=== PATIENT | female | born 2000 | race Caucasian/White ===

== ENCOUNTER 2020-09-30 12:02 | Outpatient (REF) | payer OTHER, SELFPAY ==
[2020-09-30 14:00] LABS: MANUAL DIFF FLAG NO
[2020-09-30 14:18] LABS: Basophils Percent Auto 0.4 % (0-2); Eosinophils Absolute Auto 0.1 X10*3/uL (0.0-0.4); Eosinophils Percent Auto 1.5 % (0-4); Hematocrit 39.7 % (37-47); Hemoglobin 12.2 g/dl (12.0-16.0); Imm Gran Abs Auto 0.02 X10*3/uL (0.00-0.03); Imm Gran Pct Auto 0.3 % (0.0-0.4); Lymphocytes Absolute Auto 2.2 X10*3/uL (1.2-4.9); Lymphocytes Percent Auto 29.3 % (20-40); Mean Corpuscular HGB Conc 30.7 g/dl (31.0-35.0); Mean Corpuscular Hemoglobin 25.7 pg (27.0-33.0); Mean Corpuscular Volume 83.8 fL (80-98); Mean Platelet Volume 10.3 fL (9.4-12.3); Monocytes Absolute Auto 0.4 X10*3/uL (0.1-1.2); Monocytes Percent Auto 5.7 % (2-11); Neutrophils Absolute Auto 4.6 X10*3/uL (2.0-8.3); Neutrophils Percent Auto 62.8 % (45-73); Platelet Count 358 X10*3/uL (160-400); Red Blood Count 4.74 X10*6/uL (4.20-5.50); Red Cell Distribution Width 13.2 % (11.0-16.0); White Blood Count 7.3 X10*3/uL (4.8-10.8)
[2020-09-30 14:35] LABS: Anion Gap 15 (12-20); Blood Urea Nitrogen 14 mg/dL (9-16); Calcium 9.5 mg/dL (8.4-10.2); Carbon Dioxide 26 mmol/L (22-29); Chloride 105 mmol/L (96-108); Cholesterol 95 mg/dL; Estimated Glomerular Filt Rate > 60; Glucose Fasting 88 mg/dL (60-99); HDL Cholesterol 40 mg/dL; Iron 30 mcg/dL (30-160); LDL Cholesterol Calculated 49 mg/dl; Percent Iron Saturation 10 % (15-50); Potassium 4.5 mmol/L (3.3-5.1); Sodium 141 mmol/L (135-145); Total Iron Binding Capacity 294 mcg/dL (228-428); Triglycerides 33 mg/dL; Unsaturated Iron Binding 264 ug/dL
[2020-09-30 14:40] LABS: TSH reflex Free T4 0.97 uIU/mL (0.32-4.0); Vitamin D 25-OH Total 22.7 ng/mL (>30)
== END 2020-09-30 12:03 | disposition home or self-care (01) ==
LOC: HO.HMGCLDS 12:02
PROVIDERS: PCP Internal Medicine; Visit Provider Internal Medicine
DX: Z00.00 Encounter for general adult medical examination without abnormal findings (principal); E66.01 Morbid (severe) obesity due to excess calories; F32.5 Major depressive disorder, single episode, in full remission; M79.7 Fibromyalgia; I10 Essential (primary) hypertension
CPT/HCPCS: 36415; 80048; 80061; 82306; 83540; 84443; 85025

== ENCOUNTER 2021-08-27 13:55 | Outpatient (REF) | payer OTHER, SELFPAY ==
--- NOTE | 2021-08-27 15:03 | PFT_ITS ---
Forced vital capacity 112%, FEV1 113%, FEV1/FVC ratio 87. [id number] 116% and MVV 102%. Post bronchodilator therapy, there is no significant change. Total lung capacity 95% and residual volume is 53%. Diffusion capacity is 95% CONCLUSION: Normal pulmonary function tests. No evidence of obstructive or restrictive pulmonary disorder. Reduced residual volume is probably related to obesity. MD KAYLAH Oneill/MODL / [id number]
== END 2021-08-27 13:56 | disposition home or self-care (01) ==
LOC: HO.RESP 13:55
PROVIDERS: PCP Internal Medicine; Visit Provider Internal Medicine
DX: J45.909 Unspecified asthma, uncomplicated (principal)
CPT/HCPCS: 94060; 94727; 94729

== ENCOUNTER 2021-12-07 10:14 | Outpatient (REF) | payer OTHER, SELFPAY ==
[2021-12-07 14:39] LABS: CT PCR NOT DETECTED (Not Detect.); NG PCR NOT DETECTED (Not Detect.)
[2021-12-08 13:17] LABS: BV Int Neg Control Negative (Negative); BV Int Pos Control Positive (Positive)
== END 2021-12-07 10:15 | disposition home or self-care (01) ==
LOC: HO.LAB 10:14
PROVIDERS: Visit Provider Advanced Practice Midwife
DX: Z11.3 Encounter for screening for infections with a predominantly sexual mode of transmission (principal)
CPT/HCPCS: 87480; 87491; 87510; 87591; 87660

== ENCOUNTER 2021-12-07 16:11 | Outpatient (REF) | payer OTHER, SELFPAY | END 2021-12-07 16:12 | disposition home or self-care (01) | LOC: HO.LNP 16:11 | PROVIDERS: Visit Provider Advanced Practice Midwife | DX: Z01.419 Encounter for gynecological examination (general) (routine) without abnormal findings (principal) | CPT/HCPCS: 88142 ==

== ENCOUNTER 2022-05-11 13:12 | Outpatient (AMB) | payer OTHER, SELFPAY ==
[2022-05-11 13:14] VITALS: BP 136/78; PULSE 71; O2SAT 100; BMI 42.3
--- NOTE | 2022-05-11 13:14 | MHC.PC.OV ---
Vital Signs 05/11/22 13:14 Height 5 ft 7 in Weight 270 lb 4 oz BMI 42.3 BP 136/78 Blood Pressure Location Rt brachial Position Sitting Pulse 71 Pulse Source Pulse Oximeter Pulse Oximetry (%) 100 Oxygen Delivery Method Room Air Intake Visit Reasons: Return to work paper Intake Note: pt is here to have return to work papers filled out Allergies iodine [IODINE] Allergy (Unknown, Verified 10/25/23 13:09) HIVES, SWELLING latex [LATEX] Allergy (Unknown, Verified 10/25/23 13:09) HIVES, SWELLING peanut Allergy (Unknown, Verified 10/25/23 13:09) rash tree and shrub pollen Allergy (Unknown, Verified 10/25/23 13:09) rash medical tape Allergy (Unknown, Uncoded 10/25/23 13:09) rash pollen, trees Allergy (Unknown, Uncoded 10/25/23 13:09) rash Medication List - Last Reconciled 05/11/22 by Clara Pedraza MD albuterol sulfate 90 mcg/actuation 2 puffs inhalation Q6H PRN duloxetine 60 mg PO BID meloxicam 15 mg PO DAILY PRN norgestimate-ethinyl estradiol 0.18/0.215/0.25 mg-35 mcg (28) (Tri-Linyah) 1 tab PO DAILY Tobacco use date assessed: 05/11/22 [facility] Medical History Annual visit for general adult medical examination with abnormal findings History of low back pain Mixed anxiety and depressive disorder Back pain Large breasts Morbid obesity Depression, major, in remission Bilateral finger arthralgia Fibromyalgia Lumbar disc herniation Cholelithiasis Surgical History History of lumbar spinal fusion Hx of cholecystectomy History of lumbar laminectomy for spinal cord decompression History of lumbar spinal fusion Hx of cholecystectomy Family History Mother Anxiety Essential hypertension Asthma Father Medical history non-contributory Father Medical history non-contributory Mother HTN (hypertension) Anxiety Social History Housing: Apartment Alcohol intake: never Patient Tobacco Use Status: Never used Tobacco e-Cigarette/Vaping Use: Never Used service: No Current occupational status: unemployed Cognitive needs: No Hearing needs: No Vision needs: Yes Female Reproductive History Menstrual Age of Menarche: 11 Questionnaire Thrive Questionnaire Date Thrive assessed: 07/02/21 I am a: Patient What is your living situation today?: I have a place to live, but I am worried about losing it in the future Within the past 12 months, did the food you bought not last and you didn't have the money to get more?: Never true Within the past 12 months, did you worry whether your food would run out before you got money to buy more?: Never true Do you have trouble paying for medicines?: Yes Do you have trouble getting transportation to medical appointments?: No Do you have trouble paying your heating and electricity bill?: No Do you have trouble taking care of your child, family member or friend?: No Do you have trouble with day-to-day activities such as bathing, preparing meals, shopping, managing finances, etc.?: No Are you currently unemployed and looking for a job?: Yes Are you interested in more education?: No Please select the resources that you would like help with: Paying for medicine and Job search/training AUDIT C Alcohol Use Questionnaire (AUDIT-C) 1. How often do you have a drink containing alcohol?: Never 2. How many drinks containing alcohol do you have on a typical day when you are drinking?: 1 or 2 3. How often do you have six or more drinks on one occasion?: Never Total Score: 0 MAMI-7 AMB Questionnaire MAMI-7 Date MAMI - 7 assessed: 03/25/21 Feeling nervous, anxious, or on edge: 1 = Several days Not being able to stop or control worryin = Not at all Worrying too much about different things: 1 = Several days Trouble relaxin = Several days Being so restless that it is hard to sit still: 0 = Not at all Becoming easily annoyed or irritable: 1 = Several days Feeling afraid as if something awful might happen: 0 = Not at all Total MAMI-7 score (0-4 normal; 5-9 mild; 10-14 moderate; 15-21 severe): 4 Source: Developed by Drs. Bean Dumont, JuJeison Bahena and colleagues, with an educational carmella from [employer]. Physical exam (Primary Care) Vital Signs: Last Vital Signs Pulse 71 05/11/22 13:14 BP 136/78 05/11/22 13:14 Pulse Ox 100 05/11/22 13:14 Oxygen Delivery Method Room Air 05/11/22 13:14 BMI result Body Mass Index 42.3 Tobacco/Smoking Status: Tobacco use Status Tobacco use date assessed 05/11/22 05/11/22 13:19 Patient Tobacco Use Status Never used Tobacco 05/11/22 13:19 e-Cigarette/Vaping Use Never Used 05/11/22 13:19 Thrive Assessment: Date of Thrive Assessment Date Thrive assessed 07/02/21 05/11/22 13:19 Assessment and Plan Assessment & Plan (1) History of lumbar laminectomy for spinal cord decompression: Code(s): Z98.890 - Other specified postprocedural states (2) Lumbar disc herniation: Comment: Status post decompressive laminectomy and lumbar fusion February [address] Barboza Code(s): M51.26 - Other intervertebral disc displacement, lumbar region Coding Level of Care Code Est Pt Level 2 (91418) Diagnoses History of lumbar laminectomy for spinal cord decompression Z98.890 Lumbar disc herniation M51.26
== END 2022-05-11 14:01 | disposition home or self-care (01) ==
LOC: HO.HMGC 13:12
PROVIDERS: PCP Internal Medicine; Visit Provider Internal Medicine
DX: Z98.890 Other specified postprocedural states (principal); M51.26 Other intervertebral disc displacement, lumbar region
CPT/HCPCS: 99499

== ENCOUNTER 2022-10-13 14:33 | Outpatient (AMB) | payer OTHER, SELFPAY ==
--- NOTE | 2022-10-13 15:23 | MHC.OFFWIV ---
Intake Vital Signs 10/13/22 15:27 Height 5 ft 7 in BP 138/86 Blood Pressure Location Lt brachial Position Sitting Pulse 84 Pulse Source Pulse Oximeter Temp 98.0 F Temp Source Temporal Artery Scan Pulse Oximetry (%) 99 Oxygen Delivery Method Room Air Intake Visit Reasons: EP, Bilateral ear pain, sore throat([phone]) Intake Note: pt is here for ear pain in both ears for 3 days with a headache with a wheezing cough intermittent with a scratchy throat no fever Patient Tobacco Use Status: Never used Tobacco Allergies iodine [IODINE] Allergy (Unknown, Verified 10/13/22 16:02) HIVES, SWELLING latex [LATEX] Allergy (Unknown, Verified 10/13/22 16:02) HIVES, SWELLING peanut Allergy (Unknown, Verified 10/13/22 16:02) rash tree and shrub pollen Allergy (Unknown, Verified 10/13/22 16:02) rash medical tape Allergy (Unknown, Uncoded 10/13/22 16:02) rash pollen, trees Allergy (Unknown, Uncoded 10/13/22 16:02) rash Medication List - Last Reconciled 10/13/22 by Madi Andrew MD albuterol sulfate 90 mcg/actuation 2 puffs inhalation Q6H PRN duloxetine 60 mg PO BID meloxicam 15 mg PO DAILY PRN HPI EP, Bilateral ear pain, sore throat([phone]) HPI Details Patient presents for a sick visit. Reporting symptoms of sinus congestion, sore throat and difficulty swallowing. Low-grade fever. No family member is sick. No recent travel. Patient reports symptoms of malaise and fatigue. [facility] Medical History (Updated 10/13/22 @ 16:04 by Madi Andrew MD) Back pain Bilateral finger arthralgia Cholelithiasis Depression, major, in remission Fibromyalgia History of low back pain Large breasts Lumbar disc herniation Mixed anxiety and depressive disorder Morbid obesity Surgical History History of lumbar laminectomy for spinal cord decompression History of lumbar spinal fusion History of lumbar spinal fusion Hx of cholecystectomy Hx of cholecystectomy Family History Mother Anxiety Essential hypertension Asthma Father Medical history non-contributory Brother No problems noted. Brother No problems noted. Sister No problems noted. Father Medical history non-contributory Mother HTN (hypertension) Anxiety Brother No problems noted. Brother No problems noted. Sister No problems noted. Social History Housing: Apartment Alcohol intake: never Patient Tobacco Use Status: Never used Tobacco e-Cigarette/Vaping Use: Never Used service: No Current occupational status: unemployed Cognitive needs: No Hearing needs: No Vision needs: Yes Female Reproductive History Menstrual Age of Menarche: 11 Physical Exam Vital Signs: Last Vital Signs Temp 98.0 F 10/13/22 15:27 Pulse 84 10/13/22 15:27 BP 138/86 10/13/22 15:27 Pulse Ox 99 10/13/22 15:27 Oxygen Delivery Method Room Air 10/13/22 15:27 Const General: cooperative and healthy appearing Nutritional Appearance: well nourished Orientation/consciousness: patient oriented x3 Limitations: no limitations HEENT Head: Yes normal to inspection Eyes General: appearance normal, both eyes and all related structures Neck Neck: Yes normal visual inspection Chest Chest palpation & inspection: normal palpation of entire chest wall Resp Effort & Inspection: normal respiratory effort Neuro General: patient oriented x3 Assessment & Plan Assessment & Plan (1) Upper respiratory tract infection: Code(s): J06.9 - Acute upper respiratory infection, unspecified Plan: Antibiotics ordered. Increase fluid intake. Tylenol for aches and pains. If symptoms worsen, follow-up here for a recheck. Coding Level of Care Code Est Pt Level 3 (63729) Diagnoses Upper respiratory tract infection J06.9
[2022-10-13 15:27] VITALS: BP 138/86; PULSE 84; TEMP 36.7; O2SAT 99
== END 2022-10-13 16:14 | disposition home or self-care (01) ==
PROVIDERS: PCP Internal Medicine; Visit Provider Internal Medicine
DX: J06.9 Acute upper respiratory infection, unspecified (principal)
CPT/HCPCS: 99213

== ENCOUNTER 2022-10-21 15:14 | Outpatient (AMB) | payer OTHER, SELFPAY ==
[2022-10-21 15:45] VITALS: BP 132/76; PULSE 63; O2SAT 94; BMI 41.4
--- NOTE | 2022-10-21 15:45 | MHC.PC.OV ---
Vital Signs 10/21/22 15:45 Height 5 ft 7 in Weight 264 lb 4 oz BMI 41.4 BP 132/76 Blood Pressure Location Rt brachial Position Sitting Pulse 63 Pulse Source Pulse Oximeter Pulse Oximetry (%) 94 Oxygen Delivery Method Room Air Intake Visit Reasons: Adult Annual Exam Intake Note: Pt is here today for Annual Exam Is last menstrual period known: Yes Last menstrual period: 10/15/22 Allergies iodine [IODINE] Allergy (Unknown, Verified 10/25/23 13:09) HIVES, SWELLING latex [LATEX] Allergy (Unknown, Verified 10/25/23 13:09) HIVES, SWELLING peanut Allergy (Unknown, Verified 10/25/23 13:09) rash tree and shrub pollen Allergy (Unknown, Verified 10/25/23 13:09) rash medical tape Allergy (Unknown, Uncoded 10/25/23 13:09) rash pollen, trees Allergy (Unknown, Uncoded 10/25/23 13:09) rash Medication List - Last Reconciled 10/21/22 by Clara Pedraza MD albuterol sulfate 90 mcg/actuation 2 puffs inhalation Q6H PRN amoxicillin 875 mg PO Q12H 7 days duloxetine 60 mg PO BID meloxicam 15 mg PO DAILY PRN Tobacco use date assessed: 10/21/22 Dental Screening Dental Screen Date: 10/21/22 Did you have a dental visit in the last 12 months?: Yes Did you have a dental problem in the last 6 months where you did not have access to dental care?: No Was dental information given to patient?: No HPI Adult Annual Exam HPI Details 23-year-old lady here today for physical exam. She is up-to-date with her cervical cancer screening, goes to OBGYN for her routine Pap and pelvic exam, last done in 2021 with negative findings. Currently on duloxetine for treatment of mixed anxiety and depression and fibromyalgia, which has been helping. Has history of lumbar disc herniation, recurrent pain in lower back. Takes meloxicam as needed for pain Complains of a sore throat, with pain on swallowing, which has present now for the last 5 days. Denies any fever, no chills, but has some exertional dyspnea and occasional wheezing . Has tried saline gargles and cough drops which affords only temporary relief PFSH Medical History Annual visit for general adult medical examination with abnormal findings History of low back pain Mixed anxiety and depressive disorder Back pain Large breasts Morbid obesity Depression, major, in remission Bilateral finger arthralgia Fibromyalgia Lumbar disc herniation Cholelithiasis Surgical History History of lumbar spinal fusion Hx of cholecystectomy History of lumbar laminectomy for spinal cord decompression History of lumbar spinal fusion Hx of cholecystectomy Family History Mother Anxiety Essential hypertension Asthma Father Medical history non-contributory Father Medical history non-contributory Mother HTN (hypertension) Anxiety Social History Housing: Apartment Alcohol intake: never Patient Tobacco Use Status: Never used Tobacco e-Cigarette/Vaping Use: Never Used service: No Current occupational status: unemployed Cognitive needs: No Hearing needs: No Vision needs: Yes Female Reproductive History Menstrual Age of Menarche: 11 Date of last menstrual period: 10/15/22 Date of last pap smear: 12/08/21 Other: Goes to [facility] for her routine Pap and pelvic exam Questionnaire PHQ-9 Over the last 2 weeks, how often have you been bothered by any of the following problems? 1. Little interest or pleasure in doing things: not at all 2. Feeling down, depressed, or hopeless: not at all 3. Trouble falling or staying asleep, or sleeping too much: not at all 4. Feeling tired or having little energy: several days 5. Poor appetite or overeating: not at all 6. Feeling bad about yourself - or that you are a failure or have let yourself or your family down: not at all 7. Trouble concentrating on things, such as reading the newspaper or watching television: not at all 8. Moving or speaking so slowly that other people could have noticed. Or the opposite - being so fidgety or restless that you have been moving around a lot more than usual: not at all 9. Thoughts that you would be better off or of hurting yourself in some way: not at all Total score: 1 Depression Screening Interpretation: Negative [id number] - PHQ-9 Billing: Yes Source: Developed by Drs. Bean Dumont, Jeison Randolph and colleagues, with an educational carmella from [employer] Thrive Questionnaire Date Thrive assessed: 10/21/22 What is your living situation today?: I have a steady place to live Within the past 12 months, did the food you bought not last and you didn't have the money to get more?: Never true Within the past 12 months, did you worry whether your food would run out before you got money to buy more?: Never true Do you have trouble paying for medicines?: No Do you have trouble getting transportation to medical appointments?: No Do you have trouble paying your heating and electricity bill?: No Do you have trouble taking care of your child, family member or friend?: No Do you have trouble with day-to-day activities such as bathing, preparing meals, shopping, managing finances, etc.?: No Are you currently unemployed and looking for a job?: No Are you interested in more education?: No AUDIT C Alcohol Use Questionnaire (AUDIT-C) 1. How often do you have a drink containing alcohol?: Never 3. How often do you have six or more drinks on one occasion?: Never Total Score: 0 Score Reviewed/Action Taken: Yes MAMI-7 AMB Questionnaire MAMI-7 Date MAMI - 7 assessed: 10/21/22 Feeling nervous, anxious, or on edge: 0 = Not at all Not being able to stop or control worryin = Not at all Worrying too much about different things: 0 = Not at all Trouble relaxin = Not at all Being so restless that it is hard to sit still: 0 = Not at all Becoming easily annoyed or irritable: 0 = Not at all Feeling afraid as if something awful might happen: 0 = Not at all Total MAMI-7 score (0-4 normal; 5-9 mild; 10-14 moderate; 15-21 severe): 0 Source: Developed by Drs. Bean Dumont, Jeison Randolph and colleagues, with an educational carmella from [employer] MAMI-7 Assessment Billing MAMI-7 Assessment Tool: MAMI-7 Assessment 37977 Review of Systems Const Denies fever(s), Denies headache(s), Denies weakness and Reports weight loss Eyes Details: Goes to [facility] in [place] Denies change in vision ENT Details: Dental prophylaxis with [facility]- dental every 6 months Reports as per HPI, Denies dizziness, Denies headache(s), Denies nasal congestion and Denies nasal discharge Card Denies chest pain, Denies lightheadedness and Denies dyspnea Resp Reports chest congestion, Denies cough, Denies dyspnea and Reports wheezing GI Denies abdominal pain, Denies change in bowel habits and Denies heartburn Denies hematuria, Denies urinary frequency, Denies dysuria and Denies urinary urgency Musc Reports back pain (Intermittent) Skin/Breast Denies breast pain, Denies breast mass and Denies rash Neuro Denies dizziness, Denies headache(s) and Denies weakness Psych Reports no additional complaints Endo Reports no additional complaints Alexander/Lymph Denies easy bleeding and Denies easy bruising Aller/Immun Denies seasonal rhinorrhea and Reports wheezing Physical exam (Primary Care) Vital Signs: Last Vital Signs Pulse 63 10/21/22 15:45 BP 132/76 10/21/22 15:45 Pulse Ox 94 10/21/22 15:45 Oxygen Delivery Method Room Air 10/21/22 15:45 BMI result Body Mass Index 41.4 BMI Assessment/Plan discussion: High BMI High, discussed plan: lifestyle, weight reduction, dietary and physical activity Tobacco/Smoking Status: Tobacco use Status Tobacco use date assessed 10/21/22 10/21/22 15:46 Patient Tobacco Use Status Never used Tobacco 10/21/22 15:46 e-Cigarette/Vaping Use Never Used 10/21/22 15:46 Depression Screening Interpretation: Negative Thrive Assessment: Date of Thrive Assessment Date Thrive assessed 07/02/21 10/21/22 15:46 Const General: cooperative, comfortable and no acute distress Nutritional Appearance: obese Orientation/consciousness: patient oriented x3 HENMT Other: Erythematous swollen oropharyngeal mucosa Head: Yes normocephalic Ears: external ears normal, TM's normal bilaterally and EAC's normal General nose exam: Normal external nose present Face and sinus: Yes face symmetric Mouth: Normal oral and palatal mucosa present and moist mucous membranes Eyes General: appearance normal, both eyes and all related structures Neck Neck: Yes full ROM, Yes no lymphadenopathy and Yes supple Thyroid: Thyroid normal Chest Breast/axilla inspection: normal inspection of the breasts Breast/axilla palpation: normal palpation of the breasts Resp Effort & Inspection: normal respiratory effort and able to speak in complete sentences Auscultation: wheezes scattered wheezes Cardio Rate: regular rate Rhythm: regular rhythm Heart sounds: S1 normal heart sound present and S2 normal heart sound present GI Inspection: Yes obesity Palpation (GI): Soft to palpation, nontender and no guarding General: Yes no CVA tenderness Back/Spine/Pelvis Back: no CVA tenderness Thoracic/Lumbar Spine: straight leg raise negative bilaterally and paraspinal muscle tenderness bilaterally in the mid lumbar Skin General skin exam: no rashes or lesions noted Neuro General: patient oriented x3, gait normal, tone normal, moves all extremities, Normal light touch and pain sensation and no focal motor deficits Extrem General: Yes full ROM, Yes no joint enlargement, Yes no clubbing, cyanosis or edema, Yes no calf tenderness and Yes normal gait Psych Appearance: grossly normal and well kempt Mental Status: mental status grossly normal Speech and movement: Normal speech and movement present Affect: normal affect Attitude: cooperative Thought process: Normal thought process present Assessment and Plan Assessment & Plan (1) Annual visit for general adult medical examination with abnormal findings: Code(s): Z00.01 - Encounter for general adult medical examination with abnormal findings Plan: Will check appropriate labs. Recommended dental visit every 6 months and regular eye exams, at least every 2 years. Take adequate calcium in diet and vitamin-D 3 at 2000 IU per cap once a day, in addition to weight-bearing exercises to help maintain good muscle tone and weight control. Instructed to do self-breast exam, and recommended to get yearly mammogram, starting at age 40. Immunization information provided: Yearly flu vaccine, shingles vaccine starting at age 50, at age 65 to start getting Prevnar 13 followed 1 year later by Pneumovax 23. Colonoscopy (2) Morbid obesity: Code(s): E66.01 - Morbid (severe) obesity due to excess calories Plan: Your BMI is above the ideal range. Discussed need to increase activity and weight reduction. Recommended focusing on improving health instead of dieting. Mediterranean diet is a healthy diet that helps, limit food high in fat, sugar, and calories. Eat slowly, pay attention to portion sizes, plan your meals ahead of time, start regular physical activity, at least 150 minutes of moderate intensity exercise, or 90 minutes per week of vigorous exercise. Keeping a food diary, tracking what you eat and your physical activity can help assess what improvements you can make. Referred to [facility] [place] [facility] (3) Fibromyalgia: Code(s): M79.7 - Fibromyalgia Plan: Continue on duloxetine and meloxicam as needed, advised to stay active (4) Depression, major, in remission: Code(s): F32.5 - Major depressive disorder, single episode, in full remission Plan: Currently on duloxetine (5) Acute pharyngitis: Code(s): J02.9 - Acute pharyngitis, unspecified Qualifiers: Pharyngitis/tonsillitis etiology: unspecified etiology Qualified Code(s): J02.9 - Acute pharyngitis, unspecified Plan: Empirically started on amoxicillin 875 mg per tablet to take 1 every 12 hours for 7 days. Prescription sent for albuterol inhaler to use 2 inhalations every 6 hours as needed for wheezing and episodes of bronchospasm Orders: Orders Vitamin D 25-OH Total 10/21/22 Z00.01 - Encounter for general adult medical examination with abnormal findings Hemoglobin and Hematocrit 10/21/22 Z00.01 - Encounter for general adult medical examination with abnormal findings Glucose Fasting 10/21/22 Z00.01 - Encounter for general adult medical examination with abnormal findings Lipid Panel 10/21/22 Z00.01 - Encounter for general adult medical examination with abnormal findings Referrals Medical Weight Management Referral E66.01 - Morbid (severe) obesity due to excess calories Medications: New amoxicillin 875 mg PO Q12H 14 tabs 0RF 7 days Changed From albuterol sulfate 90 mcg/actuation 2 puffs inhalation Q6H PRN 8.5 grams 4RF shortness of breath or wheezing J45.909 - Unspecified asthma, uncomplicated To albuterol sulfate 90 mcg/actuation 2 puffs inhalation Q6H PRN 8.5 grams 4RF shortness of breath or wheezing J45.909 - Unspecified asthma, uncomplicated Refilled duloxetine 60 mg PO BID 180 caps 3RF F32.9 - Major depressive disorder, single episode, unspecified, M79.7 - Fibromyalgia meloxicam 15 mg PO DAILY PRN 90 tabs 1RF joint pain M25.541 - Pain in joints of right hand, M25.542 - Pain in joints of left hand, M54.9 - Dorsalgia, unspecified, M79.7 - Fibromyalgia Coding Level of Care Code Est Pt Level 3 (53529) Est Pt Prev Care 18-39y(95418) Diagnoses Annual visit for general adult medical examination with abnormal findings Z00.01 Morbid obesity E66.01 Fibromyalgia M79.7 Depression, major, in remission F32.5 Acute pharyngitis, unspecified etiology J02.9 Pharyngitis/tonsillitis etiology: unspecified etiology Additional Codes MAMI-7 Assessment Billing - MAMI-7 Assessment Tool: MAMI-7 Assessment 99147 ([id number])
== END 2022-10-21 16:56 | disposition home or self-care (01) ==
PROVIDERS: Visit Provider Internal Medicine
DX: Z00.01 Encounter for general adult medical examination with abnormal findings (principal); E66.01 Morbid (severe) obesity due to excess calories; M79.7 Fibromyalgia; F32.5 Major depressive disorder, single episode, in full remission; J02.9 Acute pharyngitis, unspecified
CPT/HCPCS: 99499

== ENCOUNTER 2023-01-17 08:26 | Outpatient (AMB) | payer OTHER, SELFPAY ==
--- NOTE | 2023-01-17 09:57 | AM.OFFWIN_ITS ---
Intake Vital Signs 01/17/23 09:58 Height 5 ft 7 in Weight 263 lb BMI 41.2 BP 120/64 Blood Pressure Location Rt brachial Position Sitting Pulse 65 Pulse Source Pulse Oximeter Temp 98.0 F Temp Source Temporal Artery Scan Intake Visit Reasons: EP, cough, congestion ([phone]) Intake Note: pt is here for c/o cough, congestion, bloody nose, and coughing up blood Patient Tobacco Use Status: Never used Tobacco Allergies iodine [IODINE] Allergy (Unknown, Verified 01/17/23 09:58) HIVES, SWELLING latex [LATEX] Allergy (Unknown, Verified 01/17/23 09:58) HIVES, SWELLING peanut Allergy (Unknown, Verified 01/17/23 09:58) rash tree and shrub pollen Allergy (Unknown, Verified 01/17/23 09:58) rash medical tape Allergy (Unknown, Uncoded 10/21/22 16:32) rash pollen, trees Allergy (Unknown, Uncoded 10/21/22 16:32) rash Do you need a note to return to daycare/school/sports/work: Yes HPI EP, cough, congestion ([phone]) HPI Details Patient presents for a sick visit. Reporting symptoms of sinus congestion, sore throat and difficulty swallowing. Low-grade fever. No family member is sick. No recent travel. Patient reports symptoms of malaise and fatigue. [facility] Medical History (Updated 10/21/22 @ 16:33 by Clara Pedraza MD) Annual visit for general adult medical examination with abnormal findings History of low back pain Mixed anxiety and depressive disorder Back pain Large breasts Morbid obesity Depression, major, in remission Bilateral finger arthralgia Fibromyalgia Lumbar disc herniation Cholelithiasis Surgical History (Updated 10/21/22 @ 16:33 by Clara Pedraza MD) History of lumbar spinal fusion Hx of cholecystectomy History of lumbar laminectomy for spinal cord decompression History of lumbar spinal fusion Hx of cholecystectomy Family History (Updated 11/16/22 @ 15:21 by Kyra Wen [facility]) Mother Anxiety Essential hypertension Asthma Father Medical history non-contributory Father Medical history non-contributory Mother HTN (hypertension) Anxiety Social History Housing: Apartment Alcohol intake: never Patient Tobacco Use Status: Never used Tobacco e-Cigarette/Vaping Use: Never Used service: No Current occupational status: unemployed Cognitive needs: No Hearing needs: No Vision needs: Yes Female Reproductive History Menstrual Age of Menarche: 11 Physical Exam Vital Signs: Last Vital Signs Temp 98.0 F 01/17/23 09:58 Pulse 65 01/17/23 09:58 BP 120/64 01/17/23 09:58 BMI result Body Mass Index 41.2 Const General: cooperative and healthy appearing Nutritional Appearance: well nourished Orientation/consciousness: patient oriented x3 Limitations: no limitations HEENT Head: Yes normal to inspection Eyes General: appearance normal, both eyes and all related structures Neck Neck: Yes normal visual inspection Chest Chest palpation & inspection: normal palpation of entire chest wall Resp Effort & Inspection: normal respiratory effort Neuro General: patient oriented x3 Assessment & Plan Assessment & Plan (1) Upper respiratory tract infection: Code(s): J06.9 - Acute upper respiratory infection, unspecified Plan: Antibiotics ordered. Increase fluid intake. Tylenol for aches and pains. If symptoms worsen, follow-up here for a recheck. Note for work given. Coding Level of Care Code Est Pt Level 3 (40787) Diagnoses Upper respiratory tract infection J06.9
[2023-01-17 09:58] VITALS: BP 120/64; PULSE 65; TEMP 36.7; BMI 41.2
== END 2023-01-17 11:07 | disposition home or self-care (01) ==
PROVIDERS: PCP Internal Medicine; Visit Provider Internal Medicine
DX: J06.9 Acute upper respiratory infection, unspecified (principal)
CPT/HCPCS: 99213

== ENCOUNTER 2023-10-25 12:19 | Outpatient (AMB) | payer OTHER, SELFPAY ==
[2023-10-25 12:51] VITALS: BP 118/80; PULSE 68; O2SAT 99; BMI 39.9
--- NOTE | 2023-10-25 12:51 | MHC.PC.OV ---
Vital Signs 10/25/23 12:51 Height 5 ft 7 in Weight 255 lb BMI 39.9 BP 118/80 Blood Pressure Location Rt brachial Position Sitting Pulse 68 Pulse Source Pulse Oximeter Pulse Oximetry (%) 99 Oxygen Delivery Method Room Air Intake Visit Reasons: Adult annual exam Intake Note: Pt is here today for her PE: last papsmear 11/2021 Is last menstrual period known: Yes Last menstrual period: 10/14/23 Allergies iodine [IODINE] Allergy (Unknown, Verified 10/25/23 13:09) HIVES, SWELLING latex [LATEX] Allergy (Unknown, Verified 10/25/23 13:09) HIVES, SWELLING peanut Allergy (Unknown, Verified 10/25/23 13:09) rash tree and shrub pollen Allergy (Unknown, Verified 10/25/23 13:09) rash medical tape Allergy (Unknown, Uncoded 10/25/23 13:09) rash pollen, trees Allergy (Unknown, Uncoded 10/25/23 13:09) rash Medication List - Last Reconciled 10/25/23 by Clara Pedraza MD albuterol sulfate 90 mcg/actuation 2 puffs inhalation Q6H PRN duloxetine 60 mg PO BID meloxicam 15 mg PO DAILY PRN Tobacco use date assessed: 10/25/23 Dental Screening Dental Screen Date: 10/25/23 Did you have a dental visit in the last 12 months?: Yes Did you have a dental problem in the last 6 months where you did not have access to dental care?: No Was dental information given to patient?: Patient has dentist HPI Adult annual exam HPI Details 23-year-old lady here today for her physical exam. She is up-to-date with her cervical cancer screening, last done in 2021 with negative findings. She has been trying to lose weight through diet and exercise , and has lost approximately 15 lb since last visit. Patient has been seen at [facility] [place] [facility] and has been advised sleeve gastrectomy but patient wants to try doing conservative measures 1st. She has expressed interest in trying out using Wegovy, to help with weight loss. She has mixed anxiety depression disorder, currently stable and controlled on duloxetine. Takes an occasional meloxicam for low back pain due to history of lumbar disc herniation status post decompressive laminectomy and lumbar fusion February [address] Barboza. 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 [facility] Medical History Annual visit for general adult medical examination with abnormal findings History of low back pain Mixed anxiety and depressive disorder Back pain Large breasts Morbid obesity Depression, major, in remission Bilateral finger arthralgia Fibromyalgia Lumbar disc herniation Cholelithiasis Surgical History History of lumbar spinal fusion Hx of cholecystectomy History of lumbar laminectomy for spinal cord decompression History of lumbar spinal fusion Hx of cholecystectomy Family History Mother Anxiety Essential hypertension Asthma Father Medical history non-contributory Father Medical history non-contributory Mother HTN (hypertension) Anxiety Social History Housing: Apartment Alcohol intake: never Patient Tobacco Use Status: Never used Tobacco e-Cigarette/Vaping Use: Never Used service: No Current occupational status: unemployed Cognitive needs: No Hearing needs: No Vision needs: Yes Female Reproductive History Menstrual Age of Menarche: 11 Duration of menses: 3-5 days Date of last menstrual period: 10/14/23 control method: none Questionnaire PHQ-9 Over the last 2 weeks, how often have you been bothered by any of the following problems? 1. Little interest or pleasure in doing things: not at all 2. Feeling down, depressed, or hopeless: not at all 3. Trouble falling or staying asleep, or sleeping too much: not at all 4. Feeling tired or having little energy: several days 5. Poor appetite or overeating: not at all 6. Feeling bad about yourself - or that you are a failure or have let yourself or your family down: not at all 7. Trouble concentrating on things, such as reading the newspaper or watching television: not at all 8. Moving or speaking so slowly that other people could have noticed. Or the opposite - being so fidgety or restless that you have been moving around a lot more than usual: not at all 9. Thoughts that you would be better off or of hurting yourself in some way: not at all Total score: 1 Depression Screening Interpretation: Negative Depression Screening Done: Yes 07913 - PHQ-9 Billing: Yes Source: Developed by Drs. Bean Dumont, Jeison Randolph and colleagues, with an educational carmella from [employer]. Thrive Questionnaire Date Thrive assessed: 10/25/23 I am a: Patient What is your living situation today?: I have a steady place to live Within the past 12 months, did the food you bought not last and you didn't have the money to get more?: Sometimes True Within the past 12 months, did you worry whether your food would run out before you got money to buy more?: Sometimes True Do you have trouble paying for medicines?: No Do you have trouble getting transportation to medical appointments?: No Do you have trouble paying your heating and electricity bill?: No Do you have trouble taking care of your child, family member or friend?: No Do you have trouble with day-to-day activities such as bathing, preparing meals, shopping, managing finances, etc.?: No Are you currently unemployed and looking for a job?: Yes Are you interested in more education?: Yes Please select the resources that you would like help with: Housing/Chcf Currently or been in a relationship where the following occur: No concerns reported THRIVE Score: 2 AUDIT C Alcohol Use Questionnaire (AUDIT-C) 1. How often do you have a drink containing alcohol?: Never Total Score: 0 MAMI-7 AMB Questionnaire MAMI-7 Date MAMI - 7 assessed: 10/25/23 Feeling nervous, anxious, or on edge: 0 = Not at all Not being able to stop or control worryin = Not at all Worrying too much about different things: 0 = Not at all Trouble relaxin = Not at all Being so restless that it is hard to sit still: 0 = Not at all Becoming easily annoyed or irritable: 0 = Not at all Feeling afraid as if something awful might happen: 0 = Not at all Total MAMI-7 score (0-4 normal; 5-9 mild; 10-14 moderate; 15-21 severe): 0 Source: Developed by Ju Severino Kurt Kroenke and colleagues, with an educational carmella from [employer]. MAMI-7 Assessment Billing MAMI-7 Assessment Tool: MAMI-7 Assessment 74960 Review of Systems Const Denies fever(s), Denies headache(s), Denies weakness and Reports weight loss Eyes Details: Goes to [facility] in [employer] Denies change in vision ENT Details: Dental prophylaxis with [facility]- dental every 6 months Denies dizziness, Denies headache(s), Denies nasal congestion and Denies nasal discharge Card Denies chest pain, Denies lightheadedness and Denies dyspnea Resp Denies chest congestion, Denies cough, Denies dyspnea and Denies wheezing GI Denies abdominal pain, Denies change in bowel habits and Denies heartburn Denies hematuria, Denies urinary frequency, Denies dysuria and Denies urinary urgency Musc Reports back pain (Intermittent) Skin/Breast Denies breast pain, Denies breast mass and Denies rash Neuro Denies dizziness, Denies headache(s) and Denies weakness Psych Reports no additional complaints Endo Reports no additional complaints Alexander/Lymph Denies easy bleeding and Denies easy bruising Aller/Immun Denies seasonal rhinorrhea and Denies wheezing Physical exam (Primary Care) Vital Signs: Last Vital Signs Pulse 68 10/25/23 12:51 BP 118/80 10/25/23 12:51 Pulse Ox 99 10/25/23 12:51 Oxygen Delivery Method Room Air 10/25/23 12:51 BMI result Body Mass Index 39.9 BMI Assessment/Plan discussion: High BMI High, discussed plan: lifestyle, weight reduction, dietary and physical activity Tobacco/Smoking Status: Tobacco use Status Tobacco use date assessed 10/25/23 10/25/23 12:52 Patient Tobacco Use Status Never used Tobacco 10/25/23 12:52 e-Cigarette/Vaping Use Never Used 10/25/23 12:52 PHQ-9: PHQ-9 Score PHQ-9: Total score 1 10/25/23 13:11 Depression Screening Interpretation: Negative Thrive Assessment: Date of Thrive Assessment Date Thrive assessed 10/25/23 10/25/23 12:52 Currently or been in a relationship where the following occur: No concerns reported Const General: cooperative, comfortable and no acute distress Nutritional Appearance: obese Orientation/consciousness: patient oriented x3 HENMT Head: Yes normocephalic Ears: external ears normal, TM's normal bilaterally and EAC's normal General nose exam: Normal external nose present Face and sinus: Yes face symmetric Mouth: Normal oral and palatal mucosa present, oropharynx normal and moist mucous membranes Eyes General: appearance normal, both eyes and all related structures Neck Neck: Yes full ROM, Yes no lymphadenopathy and Yes supple Thyroid: Thyroid normal Chest Breast/axilla inspection: normal inspection of the breasts Breast/axilla palpation: normal palpation of the breasts Resp Effort & Inspection: normal respiratory effort and able to speak in complete sentences Auscultation: clear to auscultation bilaterally Cardio Rate: regular rate Rhythm: regular rhythm Heart sounds: S1 normal heart sound present and S2 normal heart sound present GI Inspection: Yes obesity Palpation (GI): Soft to palpation, nontender and no guarding General: Yes no CVA tenderness Back/Spine/Pelvis Back: no CVA tenderness Thoracic/Lumbar Spine: straight leg raise negative bilaterally and paraspinal muscle tenderness bilaterally in the mid lumbar Skin General skin exam: no rashes or lesions noted Neuro General: patient oriented x3, gait normal, tone normal, moves all extremities, Normal light touch and pain sensation and no focal motor deficits Extrem General: Yes full ROM, Yes no joint enlargement, Yes no clubbing, cyanosis or edema, Yes no calf tenderness and Yes normal gait Psych Appearance: grossly normal and well kempt Mental Status: mental status grossly normal Speech and movement: Normal speech and movement present Affect: normal affect Attitude: cooperative Thought process: Normal thought process present Assessment and Plan Assessment & Plan (1) Morbid obesity: Code(s): E66.01 - Morbid (severe) obesity due to excess calories Plan: Patient interested in starting Wegovy, , advised to check with her insurance 1st to see if covered, and check with her pharmacy if it is in stock . In the meantime , she was advised to continue with adhering to healthy eating habits and regular exercise. She also has been seen at the weight loss clinic in [facility] and has been advised to gastric sleeve surgery but patient would like to try medication 1st (2) Annual visit for general adult medical examination with abnormal findings: Code(s): Z00.01 - Encounter for general adult medical examination with abnormal findings Plan: Will check appropriate labs. Continue with regular dental visit every 6 months and regular eye exams, at least every 2 years. Take adequate calcium in diet and vitamin-D 3 at 2000 IU per cap once a day, in addition to weight-bearing exercises to help maintain good muscle tone and weight control. Instructed to do self-breast exam, and recommended to get yearly mammogram, starting at age 40. . She is up-to-date with her cervical cancer screening. Has had COVID vaccines in the past but does not want to get the booster, up-to-date with the flu shot, and tetanus diphtheria booster. (3) History of vitamin D deficiency: Code(s): Z86.39 - Personal history of other endocrine, nutritional and metabolic disease Plan: Vitamin-D level ordered (4) Immunity status testing: Code(s): Z01.84 - Encounter for antibody response examination Plan: MMR serology ordered (5) Mixed anxiety and depressive disorder: Code(s): F41.8 - Other specified anxiety disorders Plan: Currently stable and controlled on duloxetine, sees therapist regularly (6) History of low back pain: Code(s): Z87.39 - Personal history of other diseases of the musculoskeletal system and connective tissue Plan: Takes occasional meloxicam as needed for painful low back Orders: Orders Comprehensive [place]. Panel Fast Today E66.01 - Morbid (severe) obesity due to excess calories, Z00.01 - Encounter for general adult medical examination with abnormal findings, Z13.1 - Encounter for screening for diabetes mellitus, Z13.220 - Encounter for screening for lipoid disorders, Z86.39 - Personal history of other endocrine, nutritional and metabolic disease MMR IgG Measles Mumps Rubella Today Z01.84 - Encounter for antibody response examination Complete Blood Count Auto Diff Today E66.01 - Morbid (severe) obesity due to excess calories, Z00.01 - Encounter for general adult medical examination with abnormal findings, Z13.1 - Encounter for screening for diabetes mellitus, Z13.220 - Encounter for screening for lipoid disorders, Z86.39 - Personal history of other endocrine, nutritional and metabolic disease Lipid Panel Today E66.01 - Morbid (severe) obesity due to excess calories, Z00.01 - Encounter for general adult medical examination with abnormal findings, Z13.1 - Encounter for screening for diabetes mellitus, Z13.220 - Encounter for screening for lipoid disorders, Z86.39 - Personal history of other endocrine, nutritional and metabolic disease TSH reflex Free T4 Today E66.01 - Morbid (severe) obesity due to excess calories, Z00.01 - Encounter for general adult medical examination with abnormal findings, Z13.1 - Encounter for screening for diabetes mellitus, Z13.220 - Encounter for screening for lipoid disorders, Z86.39 - Personal history of other endocrine, nutritional and metabolic disease Vitamin D 25-OH Total Today E66.01 - Morbid (severe) obesity due to excess calories, Z00.01 - Encounter for general adult medical examination with abnormal findings, Z13.1 - Encounter for screening for diabetes mellitus, Z13.220 - Encounter for screening for lipoid disorders, Z86.39 - Personal history of other endocrine, nutritional and metabolic disease Coding Level of Care Code Est Pt [facility] Care [id number]) Diagnoses Morbid obesity E66.01 Annual visit for general adult medical examination with abnormal findings Z00.01 History of vitamin D deficiency Z86.39 Immunity status testing Z01.84 Mixed anxiety and depressive disorder F41.8 History of low back pain Z87.39 Additional Codes MAMI-7 Assessment Billing - MAMI-7 Assessment Tool: MAMI-7 Assessment [id number] ([id number])
== END 2023-10-25 14:06 | disposition home or self-care (01) ==
PROVIDERS: PCP Internal Medicine; Visit Provider Internal Medicine
DX: Z00.00 Encounter for general adult medical examination without abnormal findings (principal); E66.01 Morbid (severe) obesity due to excess calories; Z68.39 Body mass index [BMI] 39.0-39.9, adult; Z86.39 Personal history of other endocrine, nutritional and metabolic disease; F41.8 Other specified anxiety disorders; Z87.39 Personal history of other diseases of the musculoskeletal system and connective tissue
CPT/HCPCS: 99395

== ENCOUNTER 2023-10-25 13:26 | Outpatient (REF) | payer OTHER, SELFPAY ==
[2023-10-25 16:09] LABS: MANUAL DIFF FLAG NO
[2023-10-25 16:34] LABS: Basophils Percent Auto 0.4 % (0-2); Eosinophils Absolute Auto 0.1 X10*3/uL (0.0-0.4); Eosinophils Percent Auto 1.6 % (0-4); Hematocrit 37.2 % (37.0-47.0); Hemoglobin 11.4 g/dl (12.0-16.0); Imm Gran Abs Auto 0.02 X10*3/uL (0.00-0.03); Imm Gran Pct Auto 0.2 % (0.0-0.4); Lymphocytes Absolute Auto 2.5 X10*3/uL (1.2-4.9); Lymphocytes Percent Auto 30.8 % (20-40); Mean Corpuscular HGB Conc 30.6 g/dl (31.0-35.0); Mean Corpuscular Hemoglobin 25.7 pg (27.0-33.0); Mean Corpuscular Volume 83.8 fL (80.0-98.0); Mean Platelet Volume 10.5 fL (9.4-12.3); Monocytes Absolute Auto 0.5 X10*3/uL (0.1-1.2); Monocytes Percent Auto 6.3 % (2-11); Neutrophils Percent Auto 60.7 % (45-73); Platelet Count 355 X10*3/uL (160-400); Red Blood Count 4.44 X10*6/uL (4.20-5.50); Red Cell Distribution Width 13.6 % (11.0-16.0); White Blood Count 8.3 X10*3/uL (4.8-10.8)
[2023-10-25 16:58] LABS: Alanine Aminotransferase 13 U/L (0-31); Albumin Level 4.4 g/dL (3.5-5.0); Alkaline Phosphatase 66 U/L (39-117); Anion Gap 14 (12-20); Aspartate Amino Transferase 14 U/L (5-31); Bilirubin Total 0.3 mg/dL (0.0-1.0); Blood Urea Nitrogen 12 mg/dL (9-16); Calcium 9.9 mg/dL (8.4-10.2); Carbon Dioxide 27 mmol/L (22-29); Chloride 103 mmol/L (96-108); Cholesterol 103 mg/dL (<200); Estimated Glomerular Filt Rate > 60; Glucose Fasting 90 mg/dL (60-99); HDL Cholesterol 45 mg/dL (>40); LDL Cholesterol Calculated 46 mg/dL (<100); Potassium 4.2 mmol/L (3.3-5.1); Sodium 140 mmol/L (135-145); Total Protein 7.3 g/dL (6.5-8.0); Triglycerides 61 mg/dL (<150)
[2023-10-25 17:35] LABS: TSH reflex Free T4 1.23 uIU/mL (0.32-4.0); Vitamin D 25-OH Total 39.5 ng/mL (>30)
[2023-10-27 13:13] LABS: Mumps Virus IgG Antibody <9.00 AU/mL; Rubella IgG Antibody 1.18 Index
== END 2023-10-25 13:27 | disposition home or self-care (01) ==
LOC: HO.HMGCLDS 13:26
PROVIDERS: PCP Internal Medicine; Visit Provider Internal Medicine
DX: Z00.01 Encounter for general adult medical examination with abnormal findings (principal); E66.01 Morbid (severe) obesity due to excess calories; Z86.39 Personal history of other endocrine, nutritional and metabolic disease; Z13.220 Encounter for screening for lipoid disorders; Z13.1 Encounter for screening for diabetes mellitus
CPT/HCPCS: 36415; 80053; 80061; 82306; 84443; 85025; 86735; 86762; 86765

== ENCOUNTER 2024-01-24 13:42 | Outpatient (AMB) | payer OTHER, SELFPAY ==
[2024-01-24 13:47] VITALS: BP 114/66; PULSE 91; O2SAT 100; BMI 40.7
--- NOTE | 2024-01-24 13:47 | MHC.PC.OV ---
Vital Signs 01/24/24 13:47 Height 5 ft 7 in Weight 260 lb BMI 40.7 BP 114/66 Blood Pressure Location Lt brachial Position Sitting Pulse 91 Pulse Source Pulse Oximeter Pulse Oximetry (%) 100 Oxygen Delivery Method Room Air Intake Visit Reasons: weigh in and discuss med Intake Note: Pt is here today for a follow up to discuss medication and paper work that pt would like to have fill out. Allergies iodine [IODINE] Allergy (Unknown, Verified 01/24/24 14:01) HIVES, SWELLING latex [LATEX] Allergy (Unknown, Verified 01/24/24 14:01) HIVES, SWELLING peanut Allergy (Unknown, Verified 01/24/24 14:01) rash tree and shrub pollen Allergy (Unknown, Verified 01/24/24 14:01) rash medical tape Allergy (Unknown, Uncoded 01/24/24 14:01) rash pollen, trees Allergy (Unknown, Uncoded 01/24/24 14:01) rash Medication List - Last Reconciled 01/24/24 by Clara Pedraza MD albuterol sulfate 90 mcg/actuation 2 puffs inhalation Q6H PRN duloxetine 60 mg PO BID meloxicam 15 mg PO DAILY PRN semaglutide (weight loss) (Wegovy) 0.25 mg (0.5 mL) subcut QWEEK Tobacco use date assessed: 01/24/24 Dental Screening Dental Screen Date: 10/25/23 HPI weigh in and discuss med HPI Details 23-year-old lady with history of lumbar disc herniation status post decompressive laminectomy and lumbar fusion, here today requiring on note to bring back to work, detailing restrictions. Patient is unable to carry or lift anything heavier than 40 lb and can not do any twisting motion when carrying things. 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 She also has not yet started taking we go be injections as she has not been able to find the medicine in stock in the local pharmacies. Complaining of pain inside her left ear canal. Denies any accompanying discharge. Symptoms has been present for the last several days. [facility] Medical History (Updated 01/24/24 @ 14:11 by Clara Pedraza MD) Acute otitis externa of right ear Annual visit for general adult medical examination with abnormal findings History of low back pain Mixed anxiety and depressive disorder Back pain Large breasts Morbid obesity Depression, major, in remission Bilateral finger arthralgia Fibromyalgia Lumbar disc herniation Cholelithiasis Surgical History History of lumbar spinal fusion Hx of cholecystectomy History of lumbar laminectomy for spinal cord decompression History of lumbar spinal fusion Hx of cholecystectomy Family History Mother Anxiety Essential hypertension Asthma Father Medical history non-contributory Father Medical history non-contributory Mother HTN (hypertension) Anxiety Social History Housing: Apartment Alcohol intake: never Patient Tobacco Use Status: Never used Tobacco e-Cigarette/Vaping Use: Never Used service: No Current occupational status: unemployed Cognitive needs: No Hearing needs: No Vision needs: Yes Female Reproductive History Menstrual Age of Menarche: 11 Questionnaire Thrive Questionnaire Date Thrive assessed: 10/25/23 I am a: Patient What is your living situation today?: I have a steady place to live Within the past 12 months, did the food you bought not last and you didn't have the money to get more?: Sometimes True Within the past 12 months, did you worry whether your food would run out before you got money to buy more?: Sometimes True Do you have trouble paying for medicines?: No Do you have trouble getting transportation to medical appointments?: No Do you have trouble paying your heating and electricity bill?: No Do you have trouble taking care of your child, family member or friend?: No Do you have trouble with day-to-day activities such as bathing, preparing meals, shopping, managing finances, etc.?: No Are you currently unemployed and looking for a job?: Yes Are you interested in more education?: Yes Please select the resources that you would like help with: None Currently or been in a relationship where the following occur: No concerns reported THRIVE Score: 2 MAMI-7 AMB Questionnaire MAMI-7 Date MAMI - 7 assessed: 10/25/23 Source: Developed by Drs. Bean Dumont, Ju Thompson, Jeison Wharton and colleagues, with an educational carmella from [employer]. Review of Systems Const All systems reviewed & are unremarkable except as noted in HPI and below Physical exam (Primary Care) Vital Signs: Last Vital Signs Pulse 91 01/24/24 13:47 BP 114/66 01/24/24 13:47 Pulse Ox 100 01/24/24 13:47 Oxygen Delivery Method Room Air 01/24/24 13:47 BMI result Body Mass Index 40.7 BMI Assessment/Plan discussion: High BMI High, discussed plan: lifestyle, weight reduction, dietary and physical activity Tobacco/Smoking Status: Tobacco use Status Tobacco use date assessed 01/24/24 01/24/24 13:51 Patient Tobacco Use Status Never used Tobacco 01/24/24 13:51 e-Cigarette/Vaping Use Never Used 01/24/24 13:51 Thrive Assessment: Date of Thrive Assessment Date Thrive assessed 10/25/23 01/24/24 13:51 Currently or been in a relationship where the following occur: No concerns reported Const General: no acute distress Nutritional Appearance: obese Orientation/consciousness: patient oriented x3 HENMT Other: Erythematous and slightly swollen left ear external auditory canal, no active drainage, tympanic membrane intact bilaterally Neck Neck: Yes full ROM, Yes no lymphadenopathy and Yes supple Thyroid: Thyroid normal Resp Effort & Inspection: normal respiratory effort and able to speak in complete sentences Auscultation: clear to auscultation bilaterally Cardio Rate: regular rate Rhythm: regular rhythm Heart sounds: S1 normal heart sound present and S2 normal heart sound present GI Inspection: Yes obesity Palpation (GI): Soft to palpation, nontender and no guarding General: Yes no CVA tenderness Back/Spine/Pelvis Back: no CVA tenderness Thoracic/Lumbar Spine: straight leg raise negative bilaterally and paraspinal muscle tenderness bilaterally in the mid lumbar Skin General skin exam: no rashes or lesions noted Neuro General: patient oriented x3, gait normal, tone normal, moves all extremities, Normal light touch and pain sensation and no focal motor deficits Extrem General: Yes full ROM, Yes no joint enlargement, Yes no clubbing, cyanosis or edema, Yes no calf tenderness and Yes normal gait Coding Level of Care Code Est Pt Level 4 (69806) Diagnoses Acute otitis externa of right ear H60.501 History of herniated intervertebral disc Z87.39 Morbid obesity E66.01 Assessment & Plan Assessment & Plan (1) Acute otitis externa of right ear: Code(s): H60.501 - Unspecified acute noninfective otitis externa, right ear Category: Medical Plan: Prescription sent for cfbaimpd-hfzpdkiis-xvggjfrsanllgv otic drops, to use as directed (2) History of herniated intervertebral disc: Code(s): Z87.39 - Personal history of other diseases of the musculoskeletal system and connective tissue Plan: Work note given to patient detailing restrictions of not being able to carry and thing more than 40 lb or carry anything heavy when climbing stairs or doing any twisting motion. (3) Morbid obesity: Code(s): E66.01 - Morbid (severe) obesity due to excess calories Category: Medical Plan: Checked with [facility] pharmacy who has 1 more we go be injection at 0.25 mg available. Advised patient to get it filled there now and see me back in 4 weeks after starting the medication for follow-up Medications: New jgkusrej-xzvhpdmvl-OT 3.5-10,000-1 mg/mL-unit/mL-% 4 drps otic (ear) right Q8H 7 days 10 mL 0RF H60.501 - Unspecified acute noninfective otitis externa, right ear
== END 2024-01-24 14:58 | disposition home or self-care (01) ==
LOC: HO.HMCC 13:43
PROVIDERS: PCP Internal Medicine; Visit Provider Internal Medicine
DX: H60.501 Unspecified acute noninfective otitis externa, right ear (principal); Z87.39 Personal history of other diseases of the musculoskeletal system and connective tissue; E66.01 Morbid (severe) obesity due to excess calories; Z68.41 Body mass index [BMI] 40.0-44.9, adult

== ENCOUNTER → 2024-01-24 13:42 | Outpatient (BNVA) | payer OTHER, SELFPAY | PROVIDERS: PCP Internal Medicine; Visit Provider Internal Medicine ==

== ENCOUNTER 2024-11-06 11:25 | Outpatient (AMB) | payer OTHER, SELFPAY ==
[2024-11-06 11:29] VITALS: BP 104/70; PULSE 69; RESP 16; TEMP 36.8; O2SAT 99; BMI 42.3
--- NOTE | 2024-11-06 11:29 | A.OFFPC_ITS ---
Vital Signs 11/06/24 11:29 Height 5 ft 7 in Weight 270 lb BMI 42.3 BP 104/70 Blood Pressure Location Rt brachial Position Sitting Respiration 16 Pulse 69 Pulse Source Pulse Oximeter Temp 98.2 F Temp Source Oral Pulse Oximetry (%) 99 Oxygen Delivery Method Room Air Intake Visit Reasons: annual exam Intake Note: Pt is here today for her PE Allergies iodine (IODINE) Allergy (Unknown, Verified 11/06/24 11:51) HIVES, SWELLING latex (LATEX) Allergy (Unknown, Verified 11/06/24 11:51) HIVES, SWELLING peanut Allergy (Unknown, Verified 11/06/24 11:51) rash tree and shrub pollen Allergy (Unknown, Verified 11/06/24 11:51) rash medical tape Allergy (Unknown, Uncoded 11/06/24 11:51) rash pollen, trees Allergy (Unknown, Uncoded 11/06/24 11:51) rash Medication List - Last Reconciled 11/06/24 by Clara Pedraza MD albuterol sulfate 90 mcg/actuation 2 puffs inhalation Q6H PRN meloxicam 15 mg PO DAILY PRN tirzepatide (Mounjaro) 2.5 mg subcut QWEEK Tobacco use date assessed: 11/06/24 Dental Screening Dental Screen Date: 11/06/24 Did you have a dental visit in the last 12 months?: Yes Did you have a dental problem in the last 6 months where you did not have access to dental care?: No Was dental information given to patient?: Patient has dentist HPI annual exam HPI Details - The patient is a 24-year-old female pr esenting with a routine physical examination -has history of Anemia: Previously note d with a hemoglobin level of 11.4 g/dL, decreased from 12 g/dL. - Menorrhagia: Reports heavier menstrual periods and random bleeding episodes. - History of anxiety, previously managed with duloxetine, discontinued three months ago. - Obesity: Currently on Tirzepatide for weight management, initiated a week ago. [facility] Medical History (Updated 11/06/24 @ 12:04 by Clara Pedraza MD) History of cholelithiasis Annual visit for general adult medical examination with abnormal findings History of low back pain Back pain Large breasts Morbid obesity Depression, major, in remission Bilateral finger arthralgia Fibromyalgia Lumbar disc herniation Surgical History History of lumbar spinal fusion Hx of cholecystectomy History of lumbar laminectomy for spinal cord decompression History of lumbar spinal fusion Hx of cholecystectomy Family History Mother Anxiety Essential hypertension Asthma Father Medical history non-contributory Father Medical history non-contributory Mother HTN (hypertension) Anxiety Social History Housing: Apartment Alcohol intake: never Patient Tobacco Use Status: Never used Tobacco e-Cigarette/Vaping Use: Never Used service: No Current occupational status: unemployed Cognitive needs: No Hearing needs: No Vision needs: Yes Female Reproductive History Menstrual Age of Menarche: 11 Questionnaire PHQ-9 Over the last 2 weeks, how often have you been bothered by any of the following problems? 1. Little interest or pleasure in doing things: not at all 2. Feeling down, depressed, or hopeless: not at all 3. Trouble falling or staying asleep, or sleeping too much: not at all 4. Feeling tired or having little energy: not at all 5. Poor appetite or overeating: not at all 6. Feeling bad about yourself - or that you are a failure or have let yourself or your family down: not at all 7. Trouble concentrating on things, such as reading the newspaper or watching television: not at all 8. Moving or speaking so slowly that other people could have noticed. Or the opposite - being so fidgety or restless that you have been moving around a lot more than usual: not at all 9. Thoughts that you would be better off or of hurting yourself in some way: not at all Total score: 0 Depression Screening Interpretation: Negative Depression Screening Done: Yes 54545 - PHQ-9 Billing: Yes Source: Developed by Drs. Bean Dumont, Ju Thompson, Jeison Wharton and colleagues, with an educational carmella from [employer]. Thrive Questionnaire Date Thrive assessed: 11/06/24 I am a: Patient What is your living situation today?: I have a steady place to live Within the past 12 months, did the food you bought not last and you didn't have the money to get more?: Never true Within the past 12 months, did you worry whether your food would run out before you got money to buy more?: Never true Do you have trouble paying for medicines?: No Do you have trouble getting transportation to medical appointments?: No Do you have trouble paying your heating and electricity bill?: No Do you have trouble taking care of your child, family member or friend?: No Do you have trouble with day-to-day activities such as bathing, preparing meals, shopping, managing finances, etc.?: No Are you currently unemployed and looking for a job?: No Are you interested in more education?: No Please select the resources that you would like help with: None Currently or been in a relationship where the following occur: No concerns reported THRIVE Score: 0 AUDIT C Alcohol Use Questionnaire (AUDIT-C) 1. How often do you have a drink containing alcohol?: Never Total Score: 0 Score Reviewed/Action Taken: Yes MAMI-7 AMB Questionnaire MAMI-7 Date MAMI - 7 assessed: 10/25/23 Feeling nervous, anxious, or on edge: 1 = Several days Not being able to stop or control worryin = Not at all Worrying too much about different things: 1 = Several days Trouble relaxin = Not at all Being so restless that it is hard to sit still: 0 = Not at all Becoming easily annoyed or irritable: 0 = Not at all Feeling afraid as if something awful might happen: 0 = Not at all Total MAMI-7 score (0-4 normal; 5-9 mild; 10-14 moderate; 15-21 severe): 2 Source: Developed by Drs. Bean Dumont, Ju Thompson, Jeison Wharton and colleagues, with an educational carmella from [employer]. Review of Systems Const All systems reviewed & are unremarkable except as noted in HPI and below Eyes Details: Goes to [facility] in [place] for her eye exam ENT Details: Gets dental cleaning every 6 months Physical exam (Primary Care) Vital Signs: Last Vital Signs Temp 98.2 F 11/06/24 11:29 Pulse 69 11/06/24 11:29 Resp 16 11/06/24 11:29 BP 104/70 11/06/24 11:29 Pulse Ox 99 11/06/24 11:29 Oxygen Delivery Method Room Air 11/06/24 11:29 BMI result Body Mass Index 42.3 BMI Assessment/Plan discussion: High BMI High, discussed plan: lifestyle, weight reduction, dietary and physical activity Tobacco/Smoking Status: Tobacco use Status Tobacco use date assessed 11/06/24 11/06/24 11:38 Patient Tobacco Use Status Never used Tobacco 11/06/24 11:29 e-Cigarette/Vaping Use Never Used 11/06/24 11:29 PHQ-9: PHQ-9 Score PHQ-9: Total score 0 11/06/24 11:53 Depression Screening Interpretation: Negative Thrive Assessment: Date of Thrive Assessment Date Thrive assessed 11/06/24 11/06/24 11:38 Currently or been in a relationship where the following occur: No concerns reported Const General: no acute distress Nutritional Appearance: obese Orientation/consciousness: patient oriented x3 HENMT Head: Yes normocephalic Ears: external ears normal General nose exam: Normal external nose present Face and sinus: Yes face symmetric Mouth: Normal oral and palatal mucosa present, oropharynx normal and moist mucous membranes Eyes General: appearance normal, both eyes and all related structures Neck Neck: Yes full ROM, Yes no lymphadenopathy and Yes supple Thyroid: Thyroid normal Chest Breast/axilla palpation: normal palpation of the breasts Resp Effort & Inspection: normal respiratory effort and able to speak in complete sentences Auscultation: clear to auscultation bilaterally Cardio Rate: regular rate Rhythm: regular rhythm Heart sounds: S1 normal heart sound present and S2 normal heart sound present GI Inspection: Yes obesity Palpation (GI): Soft to palpation, nontender and no guarding General: Yes no CVA tenderness Back/Spine/Pelvis Back: no CVA tenderness Skin General skin exam: no rashes or lesions noted Neuro General: patient oriented x3, gait normal, tone normal, moves all extremities, Normal light touch and pain sensation and no focal motor deficits Extrem General: Yes full ROM, Yes no joint enlargement, Yes no clubbing, cyanosis or edema, Yes no calf tenderness and Yes normal gait Psych Appearance: grossly normal and well kempt Mental Status: mental status grossly normal Speech and movement: Normal speech and movement present Affect: normal affect Coding Level of Care Code Est Pt Prev Care 18-39y(91711) Diagnoses Morbid obesity E66.01 Annual visit for general adult medical examination with abnormal findings Z. Anemia D64.9 Additional Codes PHQ-9 - 66260 - PHQ-9 Billing: Yes ([id number]) Assessment & Plan Assessment & Plan (1) Morbid obesity: Code(s): E66.01 - Morbid (severe) obesity due to excess calories Category: Medical (2) Annual visit for general adult medical examination with abnormal findings: Code(s): Z00. - Encounter for general adult medical examination with abnormal findings Category: Medical (3) Anemia: Code(s): D64.9 - Anemia, unspecified Plan - Pap smear scheduled for next Tuesday. - Vaccinations: Up to date, with the last tetanus shot in 2019. - Eye care: Regular check-ups at [facility]. - Dental care: Dental cleaning every six months. - Engaged in a weight loss program with Tirzepatide, started it a week ago with no adverse effects noted -ordered a complete blood count and iron studies due to history of anemia . 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 -Preventative care measures include scheduling a Pap smear and ensuring vaccinations are up to date. The patient is encouraged to maintain regular eye and dental check-ups. Patient was informed and verbally consented to the use of an ambient scribe for clinic note documentation during this visit.. Orders: Orders IRON PROFILE 11/06/24 D64.9 - Anemia, unspecified, E66.01 - Morbid (severe) obesity due to excess calories, F41.8 - Other specified anxiety disorders, Z00.01 - Encounter for general adult medical examination with abnormal findings Lipid Panel 11/06/24 D64.9 - Anemia, unspecified, E66.01 - Morbid (severe) obesity due to excess calories, F41.8 - Other specified anxiety disorders, Z00.01 - Encounter for general adult medical examination with abnormal findings Complete Blood Count Auto Diff 11/06/24 D64.9 - Anemia, unspecified, E66.01 - Morbid (severe) obesity due to excess calories, F41.8 - Other specified anxiety disorders, Z00. - Encounter for general adult medical examination with abnormal findings Aspartate Amino Transferase 11/06/24 D64.9 - Anemia, unspecified, E66.01 - Morbid (severe) obesity due to excess calories, F41.8 - Other specified anxiety disorders, Z00.01 - Encounter for general adult medical examination with abnormal findings Alanine Aminotransferase 11/06/24 D64.9 - Anemia, unspecified, E66.01 - Morbid (severe) obesity due to excess calories, F41.8 - Other specified anxiety disorders, Z00.01 - Encounter for general adult medical examination with abnormal findings TSH reflex Free T4 11/06/24 E66.01 - Morbid (severe) obesity due to excess calories
--- OUTSIDE RECORDS SUMMARY | 2024-11-06 12:32 | XMS_ITS | Clinical Summary ---
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 30 each 11 4 02/08/20 25 Active Surgical History Surgery Date Site/Laterality Comments CHOLECYSTECTOMY Medical History Medical History Date Comments Fibromyalgia Morbid obesity with BMI of 40.0-44.9, adult (CMS /HCC V24, CMS/HCC V28) Family History Medical History Relation Name Comments Breast cancer Neg Hx Ovarian cancer Neg Hx Uterine cancer Neg Hx Relation Name Status Comments Father Alive Mother Alive Social History Tobacco Use Types Packs/Day Years Used Date Smoking Tobacco: Never Smokeless Tobacco: Never Alcohol Use Standard Drinks/Week Comments Not Currently 0 (1 standard drink = 0.6 oz pur e alcohol) Comments No Sex and Gender Information Value Date Recorded Sex Assigned at Female 02/07/2024 3:42 PM EST Legal Sex Female 11:42 AM EDT Gender Identity Female 02/07/2024 3:42 PM EST Sexual Orientation Straight 02/07/2024 3: 42 PM EST Obstetrics History Para Term AB IAB SAB Ectopic Multiple Livin g Live Births 0 0 0 0 0 0 0 0 0 0 0 Last Filed Vital Signs Vital Sign Reading Time Taken Comments Blood Pressure 128/70 02/08/2024 10:28 AM EST Pulse 69 02/08/2024 10:28 AM EST Temperature - - Respiratory Rate - - Oxygen Saturation - - Inhaled Oxygen Concentration - - Weight 120 kg (264 lb) 02/08/2024 10:28 AM EST Height 167.6 cm (5' 6 ) 02/08/2024 10:28 AM EST Body Mass Index 42.61 02/08/2024 10:28 AM EST Plan of Treatment Upcoming Encounters Date Type Department Care Team (Late st Contact Info) Description 11/13/2024 4:00 PM EDT Office Visit Obstetrics and Gynecology [id number] [place] [address] Alexandra Bello, [facility] [address] [place] [address] Health Maintenance Due Date Last Done Comments HPV Vaccines (1 - 3-dose series) 2014 DTaP,Tdap,and Td Vaccines (1 - Tdap) 2018 Hepatitis B Vaccines (1 of 3 - 19+ 3-dose series) 2018 Cervical Cancer Screening: P ap Smear 2020 COVID-19 Vaccine (2 - 2023-2 5 season) 2023 08/25/2022 Cholesterol Screening (Lipid Panel) 01/18/2024 HIV Screening 01/18/2024 Hepatitis C Screening 01/18/2024 Social Influencers of Health Screening 01/18/2024 Depression Screening 03/28/2024 Influenza Vaccine (#1) 2024 HIB Vaccines Aged Out No longer eligi ble based on patient's age to complete this topic Hepatitis A Vaccines Aged Out No long er eligible based on patient's age to complete this topic IPV Vaccines Aged Out No longer eligi ble based on patient's age to complete this topic MMR Vaccines Aged Out No longer eligi ble based on patient's age to complete this topic Meningococcal ACWY Vaccine Aged Out N o longer eligible based on patient's age to complete this topic Meningococcal B Vaccine Aged Out No l onger eligible based on patient's age to complete this topic Pneumococcal Vaccine: Pediat rics (0 to 5 Years) and At-Risk Patients (6 to 49 Years) Aged Out No longer eligi ble based on patient's age to complete this topic RSV Immunization Patients Un shahrzad 20 months Aged Out No longer eligible b ased on patient's age to complete this topic Varicella Vaccines Aged Out No longer eligible based on patient's age to complete this topic Insurance [employer] Care Teams Sticker Machine Operator Relationship Specialty Start Date End Date Physician, No Pcp PCP - General 02/07/24
== END 2024-11-06 12:57 | disposition home or self-care (01) ==
LOC: HO.HMCC 11:26
PROVIDERS: PCP Internal Medicine; Visit Provider Internal Medicine
DX: Z00.00 Encounter for general adult medical examination without abnormal findings (principal); E66.01 Morbid (severe) obesity due to excess calories; Z68.41 Body mass index [BMI] 40.0-44.9, adult; D64.9 Anemia, unspecified

== ENCOUNTER 2024-11-06 11:25 | Outpatient (REF) | payer OTHER, SELFPAY ==
[2024-11-06 13:19] LABS: MANUAL DIFF FLAG NO
[2024-11-06 13:28] LABS: Hematocrit 38.7 % (37.0-47.0); Hemoglobin 12.0 g/dl (12.0-16.0); Imm Gran Abs Auto 0.03 X10*3/uL (0.00-0.03); Imm Gran Pct Auto 0.4 % (0.0-0.4); Lymphocytes Absolute Auto 2.3 X10*3/uL (1.2-4.9); Mean Corpuscular HGB Conc 31.0 g/dl (31.0-35.0); Mean Corpuscular Hemoglobin 25.5 pg (27.0-33.0); Mean Corpuscular Volume 82.3 fL (80.0-98.0); NRBC Abs Auto 0.000 X10*3/uL (0.0-0.012); NRBC Pct Auto 0.0 /100WBC (0.0-0.2); Platelet Count 372 X10*3/uL (160-400); Red Blood Count 4.70 X10*6/uL (4.20-5.50); White Blood Count 8.2 X10*3/uL (4.8-10.8)
[2024-11-06 16:24] LABS: Alanine Aminotransferase 11 U/L (0-31); Aspartate Amino Transferase 26 U/L (5-31); Cholesterol 114 mg/dL (<200); HDL Cholesterol 41 mg/dL (>40); Iron 39 mcg/dL (30-160); Percent Iron Saturation 15 % (15-50); Total Iron Binding Capacity 267 mcg/dL (228-428); Triglycerides 63 mg/dL (<150); Unsaturated Iron Binding 228 ug/dL
== END 2024-11-06 11:26 | disposition home or self-care (01) ==
LOC: HO.HMGCLDS 11:25
PROVIDERS: PCP Internal Medicine; Visit Provider Internal Medicine
DX: Z00.01 Encounter for general adult medical examination with abnormal findings (principal); E66.01 Morbid (severe) obesity due to excess calories; Z68.41 Body mass index [BMI] 40.0-44.9, adult; D64.9 Anemia, unspecified; F41.8 Other specified anxiety disorders; Z71.3 Dietary counseling and surveillance
CPT/HCPCS: 36415; 80061; 83540; 84443; 84450; 84460; 85025; 96127